=== PATIENT | male | born 1980 | race Caucasian/White ===

== ENCOUNTER 2018-03-31 17:38 | Inpatient (IN) | payer MEDICAID ==
[~2018-03-31] VITALS: Ht 177.8 cm; Wt 86.0 kg
[2018-03-31 18:25] LABS: MEAN CORPUSCULAR HEMOGLOBIN 31.2 pg (27.5-34.5); MEAN PLATELET VOLUME 8.5 fL (7.4-10.4); PLATELET COUNT 205 x10^3/uL (130-400); RED BLOOD COUNT 4.85 x10^6/uL (4.38-5.82); RED CELL DISTRIBUTION WIDTH 14.5 % (9.4-14.8)
[2018-03-31] MEDS ORDERED: DIPH,PERTUSS(ACELL),TET VAC/PF 0.5 ML IM-VACC ONE ×2 (18:30→19:44)
[2018-03-31 18:38] LABS: ALANINE AMINOTRANSFERASE 22 U/L (12-78); ANION GAP 6 mmol/L (5-15); CALCIUM 9.3 mg/dL (8.5-10.1); CHLORIDE 102 mmol/L (98-107); CREATININE 1.12 mg/dL (0.7-1.3)
[2018-03-31 18:48] LABS: ALKALINE PHOSPHATASE 79 U/L (45-117); BILIRUBIN,TOTAL 0.7 mg/dL (0.2-1.0); TOTAL PROTEIN 7.6 g/dL (6.4-8.2)
--- NOTE | 2018-03-31 18:51 | NUR ---
PT ARRIVES TO ED WITH REDNESS TO RIGHT ARM WITH SWELLING AFTER HAVING INJECTED IV DURGS INTO IT A FEW DAYS AGO. PT REPORTS NO TRAUAMA. PT REPROTS ITS GETTIGN WORSE AND PAINFUL. NADN. PT DENIES ANY MEDICAL PROBLEMS. CALL LIGHT IN REACH AND AWAITING FURTHER ORDERS.
[2018-03-31 18:52] LABS: BASOPHILS # (AUTO) 0.04 x10^3/uL (0-0.1); BASOPHILS % (AUTO) 0 % (0-1); EOSINOPHILS # (AUTO) 0.01 x10^3/uL (0-0.4); EOSINOPHILS % (AUTO) 0 % (1-7); LYMPHOCYTES # (AUTO) 1.55 x10^3/uL (1-3.4); LYMPHOCYTES % (AUTO) 8 % (22-44); MD SCAN; MONOCYTES # (AUTO) 1.57 x10^3/uL (0.2-0.8); MONOCYTES % (AUTO) 8 % (2-9); NEUTROPHILS # (AUTO) 17.63 x10^3/uL (1.8-6.8); NEUTROPHILS % (AUTO) 85 % (42-75)
[2018-03-31] MEDS ORDERED: CLINDAMYCIN PMX 900MG/50ML 50 ML IV ONE (19:30)
[2018-03-31] MEDS ORDERED: CLINDAMYCIN PMX 900MG/50ML 50 ML ONE (19:44)
[2018-03-31] MEDS ORDERED: KETOROLAC 30 MG/1 ML ONE (19:44)
[2018-03-31] MEDS ORDERED: KETOROLAC 30 MG/1 ML IVPush ONE (20:00)
[2018-03-31] MEDS ORDERED: VANCOMYCIN PER PHARMACY MC PRN ×2 (21:30→22:00)
[2018-03-31] MEDS ORDERED: SODIUM CHLORIDE 0.9% 1,000ML IVBOLUS ONE (21:30)
[2018-03-31] MEDS ORDERED: VANCOMYCIN 1,500 MG in SODIUM CHLORIDE 0.9% 250 ML IV SCH (21:30)
[2018-03-31] MEDS ORDERED: SODIUM CHLORIDE 0.9% 1,000 ML IV SCH (21:34)
[2018-03-31] MEDS ORDERED: ONDANSETRON 2MG/ML, 2ML IVPush PRN (22:00)
[2018-03-31] MEDS ORDERED: BISACODYL 10 MG SUPP PR PRN (22:00)
[2018-03-31] MEDS ORDERED: VANCOMYCIN PMX 1GM/200ML 200 ML IV ONE (22:00)
[2018-03-31] MEDS ORDERED: DOCUSATE 100 MG CAPSULE PO PRN (22:00)
[2018-03-31] MEDS ORDERED: ONDANSETRON ODT 4 MG PO PRN (22:00)
[2018-03-31] MEDS ORDERED: hydrALAzine 20 MG/ML, 1ML IVPush PRN (22:00)
[2018-03-31] MEDS ORDERED: ACETAMINOPHEN 325 MG TABLET PO PRN (22:00)
[2018-03-31] MEDS ORDERED: PROMETHAZINE 25 MG/ML, 1ML IM PRN (22:00)
[2018-03-31] MEDS ORDERED: POLYETHYLENE GLYCOL 17 GM PACKET PO PRN (22:00)
[2018-03-31 22:10] LABS: FREE T4 (FREE THYROXINE) 0.85 ng/dL (0.76-1.46); THYROID STIMULATING HORMONE 1.05 mIU/L (0.358-3.740)
[2018-03-31 22:15] LABS: HEMOGLOBIN A1C 5.2 % (4.2-6.3)
[2018-03-31 22:23] VITALS: BP 111/70
[2018-03-31] MEDS ORDERED: PHARMACOKINETIC MONITORING MC PRN (22:30)
[2018-03-31] MEDS ORDERED: PHARMACOKINETIC CONSULTATION MC ONE (22:30)
[2018-03-31 23:02] LABS: HCT (SEDRATE) 44.6 % (39.2-51.8)
[2018-03-31] MEDS: NICOTINE 7 MG/24 HR PATCH.TD24 TD SCH (23:05)
[2018-03-31] MEDS: AMPICILLIN/SULBACTAM 3 GM in SODIUM CHLORIDE 0.9% 100 ML IV SCH (23:05)
[2018-03-31] MEDS: LACTOBACILLUS CHEW TABLET PO SCH (23:05)
[2018-03-31] MEDS: ENOXAPARIN 40 MG/0.4 ML SQ SCH (23:05)
[2018-04-01] MEDS: VANCOMYCIN 1,500 MG in SODIUM CHLORIDE 0.9% 250 ML IV SCH ×2 (00:04→15:02)
[2018-04-01 01:37] VITALS: BP 116/73
[2018-04-01] MEDS: AMPICILLIN/SULBACTAM 3 GM in SODIUM CHLORIDE 0.9% 100 ML IV SCH ×3 (05:21→19:10)
[2018-04-01 05:55] LABS: MEAN CORPUSCULAR HEMOGLOBIN 31.3 pg (27.5-34.5); MEAN CORPUSCULAR HGB CONC 33.7 g/dL (33.2-36.2); MEAN CORPUSCULAR VOLUME 92.7 fL (81-97); MEAN PLATELET VOLUME 8.9 fL (7.4-10.4); PLATELET COUNT 181 x10^3/uL (130-400); RED BLOOD COUNT 4.49 x10^6/uL (4.38-5.82); RED CELL DISTRIBUTION WIDTH 14.4 % (9.4-14.8)
[2018-04-01] MEDS: OXYcodone/APAP 5/325MG TABLET PO PRN ×2 (06:00→11:20)
[2018-04-01 06:03] LABS: ALANINE AMINOTRANSFERASE 18 U/L (12-78); ALBUMIN 3.2 g/dL (3.4-5.0); ANION GAP 6 mmol/L (5-15); CALCIUM 8.5 mg/dL (8.5-10.1); CHLORIDE 106 mmol/L (98-107)
[2018-04-01 06:07] LABS: ALKALINE PHOSPHATASE 73 U/L (45-117); BILIRUBIN,TOTAL 0.6 mg/dL (0.2-1.0); CHOL/HDL RATIO 1.8; CHOLESTEROL, TOTAL 90 mg/dL (140-239); CREATININE 1.03 mg/dL (0.7-1.3); HDL CHOL % 54 % (26-37); HDL CHOLESTEROL (DIRECT) 49 mg/dL (40-60); LDL CHOLESTEROL,CALCULATED 30 mg/dL (54-169); LDL/HDL RATIO 0.6 (0.5-3.0); TOTAL PROTEIN 6.5 g/dL (6.4-8.2); TRIGLYCERIDES 53 mg/dL (50-200); VLDL CHOLESTEROL 11 mg/dL (0-25)
[2018-04-01 06:35] LABS: BASOPHILS # (AUTO) 0.03 x10^3/uL (0-0.1); BASOPHILS % (AUTO) 0 % (0-1); EOSINOPHILS # (AUTO) 0.07 x10^3/uL (0-0.4); EOSINOPHILS % (AUTO) 0 % (1-7); LYMPHOCYTES # (AUTO) 1.09 x10^3/uL (1-3.4); LYMPHOCYTES % (AUTO) 6 % (22-44); MD SCAN; MONOCYTES # (AUTO) 1.83 x10^3/uL (0.2-0.8); MONOCYTES % (AUTO) 10 % (2-9); NEUTROPHILS # (AUTO) 14.75 x10^3/uL (1.8-6.8); NEUTROPHILS % (AUTO) 83 % (42-75)
[2018-04-01 07:28] VITALS: BP 101/63
[2018-04-01] MEDS: LACTOBACILLUS CHEW TABLET PO SCH ×3 (09:00→21:02)
[2018-04-01] MEDS: morphine SULFATE 10 MG/ML, 1ML IVPush PRN ×3 (09:19→20:41)
[2018-04-01] MEDS ORDERED: GADOBUTROL 7.5 MMOL/7.5 ML PFS ONE (13:04)
[2018-04-01 13:33] VITALS: BP 125/71
[2018-04-01 20:00] VITALS: BP 104/67
[2018-04-01] MEDS: ENOXAPARIN 40 MG/0.4 ML SQ SCH (21:01)
[2018-04-01] MEDS: NICOTINE 7 MG/24 HR PATCH.TD24 TD SCH (21:01)
[2018-04-02] MEDS: AMPICILLIN/SULBACTAM 3 GM in SODIUM CHLORIDE 0.9% 100 ML IV SCH ×4 (00:42→21:30)
[2018-04-02] MEDS: morphine SULFATE 10 MG/ML, 1ML IVPush PRN ×3 (00:47→21:26)
[2018-04-02 02:00] VITALS: BP 102/66
[2018-04-02] MEDS: VANCOMYCIN 1,500 MG in SODIUM CHLORIDE 0.9% 250 ML IV SCH ×2 (02:09→14:00)
[2018-04-02 06:29] LABS: BASOPHILS # (AUTO) 0.02 x10^3/uL (0-0.1); BASOPHILS % (AUTO) 0 % (0-1); EOSINOPHILS # (AUTO) 0.13 x10^3/uL (0-0.4); EOSINOPHILS % (AUTO) 1 % (1-7); LYMPHOCYTES # (AUTO) 1.29 x10^3/uL (1-3.4); LYMPHOCYTES % (AUTO) 12 % (22-44); MD NO; MEAN CORPUSCULAR HEMOGLOBIN 30.8 pg (27.5-34.5); MEAN CORPUSCULAR HGB CONC 33.3 g/dL (33.2-36.2); MEAN CORPUSCULAR VOLUME 92.6 fL (81-97); MEAN PLATELET VOLUME 9.3 fL (7.4-10.4); MONOCYTES # (AUTO) 1.41 x10^3/uL (0.2-0.8); MONOCYTES % (AUTO) 13 % (2-9); NEUTROPHILS # (AUTO) 7.82 x10^3/uL (1.8-6.8); NEUTROPHILS % (AUTO) 73 % (42-75); PLATELET COUNT 167 x10^3/uL (130-400); RED BLOOD COUNT 4.16 x10^6/uL (4.38-5.82); RED CELL DISTRIBUTION WIDTH 14.4 % (9.4-14.8)
[2018-04-02 06:37] LABS: ANION GAP 6 mmol/L (5-15); CHLORIDE 108 mmol/L (98-107); CREATININE 0.81 mg/dL (0.7-1.3)
[2018-04-02 07:05] VITALS: BP 119/80
[2018-04-02] MEDS: LACTOBACILLUS CHEW TABLET PO SCH ×4 (09:00→21:31)
[2018-04-02] MEDS: OXYcodone/APAP 5/325MG TABLET PO PRN (12:36)
[2018-04-02 13:05] VITALS: BP 108/70
[2018-04-02] MEDS ORDERED: MIDAZOLAM 1 MG/ML, 2ML ONE (17:17)
[2018-04-02] MEDS ORDERED: PROPOFOL 10 MG/ML, 20ML ONE (17:17)
[2018-04-02] MEDS ORDERED: FENTANYL PF 250 MCG/5ML ONE (17:17)
[2018-04-02] MEDS ORDERED: LIDOCAINE-MPF 2% ,5ML ONE (17:17)
[2018-04-02] MEDS ORDERED: OXYcodone 5 MG/5 ML ORAL.SOL UDC PO PRN (18:30)
[2018-04-02] MEDS ORDERED: MEPERIDINE/PF 25MG/0.5ML IVPush PRN (18:30)
[2018-04-02] MEDS ORDERED: LORazepam 2 MG/ML, 1ML IVPush PRN (18:30)
[2018-04-02] MEDS ORDERED: ALBUTEROL SULFATE 2.5 MG/3 ML NPPB PRN (18:30)
[2018-04-02] MEDS ORDERED: PROMETHAZINE 25 MG/ML, 1ML IV PRN (18:30)
[2018-04-02] MEDS ORDERED: ACETAMINOPHEN 325 MG TABLET PO PRN (18:30)
[2018-04-02] MEDS ORDERED: HYDROmorphone 2 MG/ML, 1ML IVPush PRN (18:30)
[2018-04-02] MEDS ORDERED: HALOPERIDOL 5 MG/ML IV PRN (18:30)
[2018-04-02] MEDS ORDERED: ONDANSETRON 2MG/ML, 2ML IV PRN (18:30)
[2018-04-02] MEDS ORDERED: FENTANYL PF 100 MCG/2ML ONE (18:33)
[2018-04-02] MEDS ORDERED: OXYcodone 5 MG/5 ML ORAL.SOL UDC ONE (18:33)
[2018-04-02] MEDS: FENTANYL PF 100 MCG/2ML IV PRN ×2 (18:35→18:42)
[2018-04-02] MEDS ORDERED: MORPHINE SULFATE 4 MG/ML, 1ML ONE (18:53)
[2018-04-02] MEDS ORDERED: MORPHINE SULFATE 4 MG/ML, 1ML IVPush PRN (19:00)
[2018-04-02 19:45] VITALS: BP 110/58
[2018-04-02] MEDS: NICOTINE 7 MG/24 HR PATCH.TD24 TD SCH (21:32)
[2018-04-02] MEDS: ENOXAPARIN 40 MG/0.4 ML SQ SCH (21:32)
[2018-04-02] MEDS: VANCOMYCIN 1,800 MG in SODIUM CHLORIDE 0.9% 250 ML IV SCH (23:18)
[2018-04-02] MEDS: KETOROLAC 30 MG/1 ML IV PRN (23:30)
[2018-04-03 00:20] VITALS: BP 106/68
[2018-04-03 01:24] VITALS: BP 107/68
[2018-04-03] MEDS: AMPICILLIN/SULBACTAM 3 GM in SODIUM CHLORIDE 0.9% 100 ML IV SCH ×4 (03:49→22:52)
[2018-04-03 03:55] VITALS: BP 114/69
[2018-04-03] MEDS: morphine SULFATE 10 MG/ML, 1ML IVPush PRN ×5 (04:09→20:56)
[2018-04-03] MEDS: KETOROLAC 30 MG/1 ML IV PRN ×2 (05:30→22:52)
[2018-04-03 06:04] LABS: BASOPHILS # (AUTO) 0.02 x10^3/uL (0-0.1); BASOPHILS % (AUTO) 0 % (0-1); EOSINOPHILS # (AUTO) 0.14 x10^3/uL (0-0.4); EOSINOPHILS % (AUTO) 2 % (1-7); LYMPHOCYTES # (AUTO) 1.56 x10^3/uL (1-3.4); LYMPHOCYTES % (AUTO) 18 % (22-44); MD NO; MEAN CORPUSCULAR HEMOGLOBIN 30.9 pg (27.5-34.5); MEAN CORPUSCULAR HGB CONC 33.3 g/dL (33.2-36.2); MEAN CORPUSCULAR VOLUME 92.6 fL (81-97); MEAN PLATELET VOLUME 8.9 fL (7.4-10.4); MONOCYTES # (AUTO) 1.14 x10^3/uL (0.2-0.8); MONOCYTES % (AUTO) 13 % (2-9); NEUTROPHILS % (AUTO) 67 % (42-75); PLATELET COUNT 238 x10^3/uL (130-400); RED BLOOD COUNT 4.52 x10^6/uL (4.38-5.82); RED CELL DISTRIBUTION WIDTH 14.1 % (9.4-14.8)
[2018-04-03 06:08] LABS: ANION GAP 5 mmol/L (5-15); CALCIUM 8.6 mg/dL (8.5-10.1); CHLORIDE 103 mmol/L (98-107); CREATININE 0.87 mg/dL (0.7-1.3)
[2018-04-03] MEDS ORDERED: MORPHINE SULFATE 4 MG/ML, 1ML ONE ×2 (09:25→12:36)
[2018-04-03] MEDS: LACTOBACILLUS CHEW TABLET PO SCH ×3 (09:33→20:55)
[2018-04-03 10:47] VITALS: BP 116/77
[2018-04-03] MEDS: VANCOMYCIN 1,800 MG in SODIUM CHLORIDE 0.9% 250 ML IV SCH (12:43)
[2018-04-03 14:00] VITALS: BP 120/80
[2018-04-03 19:16] VITALS: BP 128/67
[2018-04-03] MEDS: ENOXAPARIN 40 MG/0.4 ML SQ SCH (20:55)
[2018-04-03] MEDS: NICOTINE 7 MG/24 HR PATCH.TD24 TD SCH (20:56)
[2018-04-04] MEDS: VANCOMYCIN 1,800 MG in SODIUM CHLORIDE 0.9% 250 ML IV SCH (00:30)
[2018-04-04 02:13] VITALS: BP 116/68
[2018-04-04] MEDS: AMPICILLIN/SULBACTAM 3 GM in SODIUM CHLORIDE 0.9% 100 ML IV SCH (04:19)
[2018-04-04] MEDS: OXYcodone/APAP 5/325MG TABLET PO PRN (05:10)
[2018-04-04 06:01] LABS: BASOPHILS # (AUTO) 0.03 x10^3/uL (0-0.1); BASOPHILS % (AUTO) 1 % (0-1); EOSINOPHILS # (AUTO) 0.24 x10^3/uL (0-0.4); EOSINOPHILS % (AUTO) 4 % (1-7); LYMPHOCYTES # (AUTO) 1.84 x10^3/uL (1-3.4); LYMPHOCYTES % (AUTO) 30 % (22-44); MD NO; MEAN CORPUSCULAR HEMOGLOBIN 31.2 pg (27.5-34.5); MEAN CORPUSCULAR HGB CONC 33.8 g/dL (33.2-36.2); MEAN CORPUSCULAR VOLUME 92.4 fL (81-97); MEAN PLATELET VOLUME 8.8 fL (7.4-10.4); MONOCYTES # (AUTO) 1.04 x10^3/uL (0.2-0.8); MONOCYTES % (AUTO) 17 % (2-9); NEUTROPHILS # (AUTO) 2.98 x10^3/uL (1.8-6.8); NEUTROPHILS % (AUTO) 49 % (42-75); PLATELET COUNT 255 x10^3/uL (130-400); RED BLOOD COUNT 4.26 x10^6/uL (4.38-5.82); RED CELL DISTRIBUTION WIDTH 14.6 % (9.4-14.8)
[2018-04-04 06:04] LABS: ANION GAP 9 mmol/L (5-15); CALCIUM 7.3 mg/dL (8.5-10.1); CHLORIDE 110 mmol/L (98-107); CREATININE 0.92 mg/dL (0.7-1.3)
[2018-04-04 06:55] VITALS: BP 124/72
[2018-04-04] MEDS ORDERED: AMOX1TAB64 PO (09:25)
== END 2018-04-04 11:54 | disposition home or self-care (01) | DRG 854 ==
LOC: ED 21:16 → EDIP 21:34 → 3NE 22:06
PROVIDERS: ADMIT Internal Medicine; ATTEND Internal Medicine
PROC: 0JBH0ZZ Excision of Left Lower Arm Subcutaneous Tissue and Fascia, Open Approach (ICD-10-PCS; principal; 2018-04-02 15:00)
DX: A41.9 Sepsis, unspecified organism (principal); L02.414 Cutaneous abscess of left upper limb; L03.114 Cellulitis of left upper limb; F10.10 Alcohol abuse, uncomplicated; F15.10 Other stimulant abuse, uncomplicated; F17.210 Nicotine dependence, cigarettes, uncomplicated; G43.909 Migraine, unspecified, not intractable, without status migrainosus; Z23 Encounter for immunization
CPT/HCPCS: 36415; 80048; 80053; 80061; 80202; 83036; 83605; 83735; 84439; 84443; 85025; 85651; 86140; 87040; 87070; 87075; 87076; 87147; 87176; 87205; 90656; 90715; A9585; G0378; J0295; J1650; J1885; J2250; J2704; J3010; J3370; J3490; Q0162; J2270; J7030; J7050

== ENCOUNTER 2018-04-20 09:53 | Emergency (ER) | payer MEDICAID ==
[~2018-04-20] VITALS: Ht 180.3 cm; Wt 79.1 kg
[~2018-04-20 09:53] MED LIST: AMOX1TAB64 PO
[2018-04-20 10:00] VITALS: BP 125/80
--- NOTE | 2018-04-20 10:20 | NUR ---
Sutures removed from LFA. Minimal erythema, no drainage or swelling noted. No dressing/abx needed. Patient given discharge instructions and they have confirmed that they understand the instructions. Patient ambulatory with steady gait.
== END 2018-04-20 10:32 | disposition home or self-care (01) ==
LOC: ED 10:26
DX: S51.812D Laceration without foreign body of left forearm, subsequent encounter (principal); F17.210 Nicotine dependence, cigarettes, uncomplicated; X58.XXXD Exposure to other specified factors, subsequent encounter
CPT/HCPCS: 99281

== ENCOUNTER 2019-06-26 10:09 | Emergency (ER) | payer MEDICAID ==
[~2019-06-26] VITALS: Ht 180.3 cm; Wt 79.6 kg
[2019-06-26 10:13] VITALS: BP 102/68
[2019-06-26] MEDS ORDERED: KETOROLAC 30 MG/1 ML ONE (10:42)
[2019-06-26] MEDS ORDERED: CYCLOBENZAPRINE 10 MG TABLET ONE (10:42)
[2019-06-26] MEDS ORDERED: ACETAMINOPHEN 500 MG TABLET ONE (10:43)
--- NOTE | 2019-06-26 10:45 | NUR ---
PT TO IMAGING VIA AMBULATION WITH [employer] AT THIS TIME. STEADY UPON AMBULATION.
[2019-06-26] MEDS ORDERED: CYCLOBENZAPRINE 10 MG TABLET PO ONE (11:00)
[2019-06-26] MEDS ORDERED: KETOROLAC 30 MG/1 ML IM ONE (11:00)
[2019-06-26] MEDS ORDERED: ACETAMINOPHEN 500 MG TABLET PO ONE (11:00)
--- NOTE | 2019-06-26 11:37 | NUR ---
PT D/C WITH D/C SUMMARY AND SCRIPTS. ALL QUESTIONS ANSWERED. PT AMBULATES TO REGISTRATION DESK WITH STEADY GAIT FOR D/C HOME. PT DENIES ANY OTHER NEEDS PERTAINING TO THIS VISIT.
== END 2019-06-26 11:41 | disposition home or self-care (01) ==
LOC: ED 11:35
DX: M54.42 Lumbago with sciatica, left side (principal); Z90.49 Acquired absence of other specified parts of digestive tract
CPT/HCPCS: 72110; 96372; 99283; J1885; 10120